=== PATIENT | female | born 1995 | race Caucasian/White ===

== ENCOUNTER 2025-11-02 07:39 | Inpatient (IN) ==
[2025-11-02] MEDS ORDERED: CALCIUM CARBONATE 500 MG CHEWABLE TAB PO PRN (08:01)
[2025-11-02] MEDS ORDERED: OXYTOCIN 30 UNITS/NSS 30 UNITS/500 ML BAG IV PRN (08:01)
[2025-11-02] MEDS ORDERED: ACETAMINOPHEN 325 MG TAB PO PRN (08:01)
[2025-11-02] MEDS ORDERED: LIDOCAINE 1% LOCAL 20 ML VIAL INFIL PRN (08:01)
--- NOTE | 2025-11-02 08:04 | History & Physical Report ---
Date of Service November 02, 2025 Assessment & Plan (1) Obesity affecting , antepartum: (2) Gestational diabetes: (3) Encounter for induction of labor: Plan Plan pitocin iol, arom when appropriate, epidural on demand, anticipate . bs q 2 hrs. Admission and Anticipated Discharge Date Admission Date: November 02, 2025 History of Present Illness Chief Complaint: iol Primary Care Provider: Zac Del Valle PA-C Patient is a 30yowf who presents for iol for obesity and gdm. She notes good fm, occasional contraction, no lof/vb. and Delivery Plans Obesity (BMI 40 and higher @ beginning of ) *Growth US @ 32wks *Weekly NSTs @ 34wks *BMI 40 or greater offer detailed/level II [place] [facility] [place] *BMI 40 or above offer delivery by [facility]. 11/02/25 Hepatitis B Non Immune *Recommend Hepatitis B Vaccine Neg pap/HPV+ @ NOB visit *Repeat pap 1 year Trichomonas infection on pap @ NOB visit *MAX 3-4 wks after treatment----negative GDM w/16wk glucola *Begin monthly Growth US's @24wks OB Labs: Blood Type O Positive 04/16/25 Antibody Screen NEGATIVE 04/16/25 Hgb 11.5 g/dl (12.0-16.0) L 08/13/25 Hct 33.6 % (37.0-47.0) L 08/13/25 MCV 83.8 fL (80.0-100.0) 04/16/25 Plt Count 292 K/uL (130-400) 04/16/25 Rubella IgG Antibody Non Immune (Immune) L 04/16/25 Treponema pallidum Ab Negative (Negative) 08/13/25 Hep Bs Antigen Negative (Negative) 04/16/25 Hepatitis C Antibody Negative (Negative) 04/16/25 HIV 1&2 Ab/P24 Ag 4thGn Negative (Negative) 04/16/25 Glucose 1 Hr 50 gm 138 mg/dl (70-130) H 05/31/25 Maternal Serum AFP 38.7 ng/mL 05/31/25 OB Optional Labs: Chlamydia trachomatis RNA Not Detected (NotDetected) 05/26/25 Neisseria gonorrhoeae RNA Not Detected (NotDetected) 05/26/25 Alpha Fetoprotein Triple Screen SEE NOTE 05/31/25 Labs Reviewed: gbs neg afp neg low risk panorama shorizon 14 neg. gbs neg Allergies Allergy/AdvReac Type Severity Reaction Status Date / Time z iza Allergy Vomiting Uncoded 11/01/25 10:16 Home Medications Medication Instructions Recorded Confirmed Type prenat.vits,ozzie,aww-cvyd-jzjjd tab PO 04/14/25 11/01/25 History acetone (urine) test (Ketone Urine #50 ea 06/25/25 11/01/25 Rx Test strips) blood sugar diagnostic (OneTouch #150 ea 06/25/25 11/01/25 Rx Verio test strips) blood-glucose meter (OneTouch #1 ea 06/25/25 11/01/25 Rx Verio Flex Meter) lancets 33 gauge (OneTouch Delica #150 ea 06/25/25 11/01/25 Rx Plus Lancet) calcium carbonate [Tums] PO 09/09/25 11/01/25 History famotidine [Pepcid] PO 09/09/25 11/01/25 History Patient History Family History (Updated 04/14/25 @ 14:33 by Anabella Vazquez) Father Heart disease Mother Raynauds disease Social History (Updated 04/14/25 @ 14:42 by Anabella Vazquez) Smoking Status: Never smoker Do You Dip or Chew Tobacco: No; marital status: Single marital status details: James (31) [phone] Current Living Situation: Significant Other Current Living Situation Comment: lives with fob, 1 cat, fob to change litter current occupational status: employed current occupation: [employer] History g1--present [employer] History noncontributory Physical Exam Constitutional: WD/WN, vitals as above Gastrointestinal (Abdomen): soft, gravid, nt Psychiatric: A+Ox3, euthymic affect Genitourinary: cx-- toco--rare efm--135 with mod variability, accels to 150s, no decels Coding Level of Care Code None Diagnoses Obesity affecting , antepartum O99.210 Gestational diabetes O24.419 Encounter for induction of labor Z34.90
[2025-11-02] MEDS: LACTATED RINGER'S 1,000 ML IV PRN (08:36)
[2025-11-02 08:41] LABS: Hematocrit (blood only) 33.3 % (37.0-47.0); Hemoglobin 11.1 g/dL (12.0-16.0); Mean Corpuscular Hemoglobin 27.4 pg (25.0-34.0); Mean Corpuscular Volume 82.2 fL (80.0-100.0); Platelet Count 310 K/uL (130-400); RDW Standard Deviation 39.9 fL (36.4-46.3); Red Blood Count 4.05 M/uL (4.20-5.40); White Blood Count 10.36 K/ul (4.8-10.8)
[2025-11-02] MEDS: OXYTOCIN 30 UNITS/NSS 30 UNITS/500 ML BAG IV PRN (08:55)
--- NOTE | 2025-11-02 15:55 | Labor Progress Brief Note ---
Date of Service November 02, 2025 Subjective noting contractions, tolerating Assessment & Plan (1) Encounter for induction of labor: Plan continue current management, epidural if desires, fetus category one, anticipate . Admission and Anticipated Discharge Date Admission Date: November 02, 2025 Physical Exam Physical Exam: gentle tug and penaloza out cx--75/-2 arom--thin mec toco--q2-4min, pit at 8 efm--145 with mod variability, accels to 170s, no decels Results & Data Vital Signs (Past 12 Hours) Vital Signs Temp Pulse Resp BP 11/02/25 12:33 76 132/66 11/02/25 12:30 18 11/02/25 12:30 36.4 C L 18 11/02/25 10:28 72 121/82 11/02/25 09:00 36.7 C 18 11/02/25 08:04 90 135/87 11/02/25 08:00 18 11/02/25 08:00 36.7 C 18 Coding Level of Care Code None Diagnoses Encounter for induction of labor Z34.90
[2025-11-02] MEDS ORDERED: NALOXONE HCL 1 MG in SODIUM CHLORIDE 0.9% 1,000 ML IV PRN (22:33)
[2025-11-02] MEDS ORDERED: LIDOCAINE 2% MPF LOCAL 5 ML VIAL EPI PRN (22:33)
[2025-11-02] MEDS ORDERED: PROMETHAZINE 6.25 MG/50.25 ML BAG IV PRN (22:33)
[2025-11-02] MEDS ORDERED: ONDANSETRON INJ 2 MG/ML 2 ML VIAL IV PRN (22:33)
[2025-11-02] MEDS ORDERED: diphenhydrAMINE 50 MG/ML VIAL IV PRN (22:33)
[2025-11-02] MEDS ORDERED: NALOXONE HCL 0.4 MG/1 ML VIAL/CARP IV PRN (22:33)
[2025-11-02] MEDS ORDERED: ROPIVACAINE 0.5% PF 5 MG/ML 20 ML VIAL EPI PRN (22:33)
[2025-11-02] MEDS ORDERED: BUPIVACAINE 0.25% PF 30 ML VIAL EPI PRN (22:33)
[2025-11-02] MEDS ORDERED: NALBUPHINE HCL INJ 10 MG/ML AMP IV PRN (22:33)
[2025-11-02] MEDS ORDERED: SODIUM CHLORIDE 0.9% PF INJ 10 ML VIAL EPI PRN (22:33)
--- NOTE | 2025-11-02 22:34 | Anesthesiology Consultation ---
Date of Service November 02, 2025 Assessment & Plan Chart Review Chart Review: Patient NOT seen in Pre Admission Testing and Acceptable Risk for Labor Epidural Consults Requested none ASA ASA2 Proposed Anesthesia Anesthesia Type: Labor Epidural Risk / Benefits Reviewed With: PT / POA / Parent / Guardian, Accepts Plan and Informed Consent Obtained History Height/Weight Height: 5 ft 3 in Weight: 123.377 kg Allergies Allergy/AdvReac Type Severity Reaction Status Date / Time azithromycin [From Zithromax] Allergy Vomiting Verified 11/02/25 08:08 Medications Home Medications Medication Instructions Recorded Confirmed Last Taken prenat.vits,ozzie,znu-lsqu-froce tab PO 04/14/25 11/01/25 Unknown acetone (urine) test (Ketone Urine #50 ea 06/25/25 11/01/25 Unknown Test strips) blood sugar diagnostic (OneTouch #150 ea 06/25/25 11/01/25 Unknown Verio test strips) blood-glucose meter (OneTouch #1 ea 06/25/25 11/01/25 Unknown Verio Flex Meter) lancets 33 gauge (OneTouch Delica #150 ea 06/25/25 11/01/25 Unknown Plus Lancet) calcium carbonate [Tums] PO 09/09/25 11/01/25 Unknown famotidine [Pepcid] PO 09/09/25 11/01/25 Unknown Active Medications Generic Name Dose Route Start Last Admin Trade Name Freq PRN Reason Stop Dose Admin Oxytocin 30 units in 500 mls @ 17 mls/hr 11/02/25 08:01 11/02/25 20:35 Pitocin 30 Units/Nss IV 11/04/25 08:00 1.02 units/hr .Q24H PRN 17 mls/hr Labor Induction/Augmentation Titration Protocol 1.02 UNITS/HR Lactated Ringer's 1,000 mls @ 125 mls/hr 11/02/25 08:01 11/02/25 22:17 Lr IV 11/04/25 08:00 999 mls/hr .Q8H PRN Administration L&D Protocol Protocol Exercise / Class Metabolic Activity II 4-5 Yardwork/Stairs/Walk up hill Past Family History Family History Father Heart disease Mother Raynauds disease Past Anesthesia History No Hx of Anesthesia Complications and No Family Hx of Anesthesia Complications History of PONV No Hx of PONV and No Hx of Motion Sickness Social History Smoking Status: Never smoker Do You Dip or Chew Tobacco: No Hx Alcohol Use: No Hx Substance Use: No substance use type: does not use Physical Exam Vital Signs Last Vital Signs Temp 36.9 C 11/02/25 21:05 Pulse 86 11/02/25 22:29 Resp 16 11/02/25 21:05 BP 124/68 11/02/25 21:05 Pulse Ox 96 11/02/25 22:29 ENMT Mouth: no dentition abnormality Thyromental Distance: > or= 3.5 Finger Breadths Mallampati Class: II Neck normal visual inspection Respiratory normal respiratory effort Auscultation: lungs clear to auscultation bilaterally Cardiovascular Rate/Rhythm: regular rate and regular rhythm Psychiatric Orientation: alert Testing Laboratory Results 11/02/25 08:11 11/02/25 11/02/25 11/02/25 20:13 18:30 16:43 POC Glucose 103 H 94 100 H 11/02/25 11/02/25 11/02/25 14:35 12:35 10:31 POC Glucose 85 81 105 H
[2025-11-02] MEDS: fentANYL 2 MCG/ML BUPIVacaine 0.125%-NSS 100ML BAG ONE (22:52)
[2025-11-02] MEDS: BUPIVACAINE 0.25% PF 30 ML VIAL ONE (23:01)
[2025-11-02] MEDS: SODIUM CHLORIDE 0.9% PF INJ 10 ML VIAL ONE (23:01)
[2025-11-02] MEDS: LIDOCAINE 2%/EPINEPHRINE 1:200,000 20 ML PF ONE (23:01)
--- NOTE | 2025-11-03 00:12 | Labor Progress Brief Note ---
Date of Service November 03, 2025 Subjective comfortable with epidural Assessment & Plan (1) Encounter for induction of labor: Plan continue pit to get adequate contractions. fetus overall category one. Admission and Anticipated Discharge Date Admission Date: November 02, 2025 Physical Exam Physical Exam: cx--4/75/-2 toco--q2-4. pit at 19 efm--140s wtih mod variability, accels to 160s, one decel noted that resolved with position change iupc placed Results & Data Vital Signs (Past 12 Hours) Vital Signs Temp Pulse Resp BP Pulse Ox 11/03/25 00:09 84 169/84 H 98 11/03/25 00:04 88 98 11/03/25 00:00 18 11/03/25 00:00 18 11/02/25 23:59 90 98 11/02/25 23:56 81 142/83 H 11/02/25 23:55 93 H 162/91 H 11/02/25 23:54 86 97 11/02/25 23:49 96 H 97 11/02/25 23:47 86 94 11/02/25 23:44 75 96 11/02/25 23:41 75 94 11/02/25 23:39 86 94 11/02/25 23:35 86 94 11/02/25 23:34 78 96 11/02/25 23:33 78 128/58 L 11/02/25 23:30 18 11/02/25 23:30 18 11/02/25 23:29 79 95 11/02/25 23:28 90 122/59 L 11/02/25 23:24 97 H 95 11/02/25 23:23 94 H 132/62 11/02/25 23:19 79 96 11/02/25 23:18 98 H 141/64 H 11/02/25 23:14 93 H 96 11/02/25 23:12 95 H 136/60 11/02/25 23:09 94 H 145/75 H 97 11/02/25 23:08 95 H 88/54 L 11/02/25 23:06 91 H 109/54 L 11/02/25 23:04 95 H 106/55 L 97 11/02/25 23:02 91 H 105/53 L 11/02/25 23:00 36.6 C 101 H 16 110/53 L 11/02/25 22:59 107 H 96 11/02/25 22:58 91 H 112/52 L 11/02/25 22:57 100 H 107/55 L 11/02/25 22:54 94 H 97 11/02/25 22:52 93 H 115/56 L 11/02/25 22:49 102 H 98 11/02/25 22:44 111 H 98 11/02/25 22:39 104 H 98 11/02/25 22:34 84 97 11/02/25 22:29 86 96 11/02/25 22:26 86 93 11/02/25 22:24 96 H 98 11/02/25 22:19 95 H 98 11/02/25 22:14 76 98 11/02/25 22:09 93 H 97 11/02/25 22:04 90 97 11/02/25 21:05 36.9 C 70 16 124/68 11/02/25 19:08 36.9 C 79 18 122/71 11/02/25 17:00 18 11/02/25 17:00 36.7 C 18 11/02/25 16:30 18 11/02/25 16:30 18 11/02/25 15:53 88 140/78 11/02/25 15:50 18 11/02/25 15:50 36.7 C 18 11/02/25 12:33 76 132/66 11/02/25 12:30 18 11/02/25 12:30 36.4 C L 18 Coding Level of Care Code None Diagnoses Encounter for induction of labor Z34.90
[2025-11-03] MEDS: BUPIVACAINE 0.25% PF 30 ML VIAL EPI STA (00:28)
[2025-11-03] MEDS: LIDOCAINE 2%/EPINEPHRINE 1:200,000 20 ML PF EPI STA (00:28)
[2025-11-03] MEDS: SODIUM CHLORIDE 0.9% PF INJ 10 ML VIAL EPI STA (00:28)
--- NOTE | 2025-11-03 06:18 | Labor Progress Brief Note ---
Date of Service November 03, 2025 Subjective comfortable Assessment & Plan (1) Gestational diabetes: (2) Obesity affecting , antepartum: Plan Small change, only adequate for 3 hours. Fetus overall category one with the occasional decel noted. Continue current management. Admission and Anticipated Discharge Date Admission Date: November 02, 2025 Physical Exam Physical Exam: cx--5/100/-2 toco--q2-4min, pit at 27, adequate since about 3am efm--130s with mod variability, small accels, occasional early type of decel out of the blue with spon resolution Results & Data Vital Signs (Past 12 Hours) Vital Signs Temp Pulse Resp BP Pulse Ox 11/03/25 06:10 74 179/99 H 11/03/25 06:09 98 11/03/25 06:09 72 11/03/25 06:09 79 152/101 H 11/03/25 06:04 88 98 11/03/25 05:59 75 97 11/03/25 05:54 90 97 11/03/25 05:53 90 134/92 11/03/25 05:49 74 96 11/03/25 05:44 70 95 11/03/25 05:39 95 11/03/25 05:39 65 11/03/25 05:39 62 133/82 11/03/25 05:34 71 98 11/03/25 05:30 18 11/03/25 05:30 18 11/03/25 05:29 68 96 11/03/25 05:24 97 11/03/25 05:24 69 11/03/25 05:24 70 142/84 H 11/03/25 05:19 68 96 11/03/25 05:14 67 97 11/03/25 05:10 68 140/83 11/03/25 05:09 68 96 11/03/25 05:04 68 98 11/03/25 05:00 18 11/03/25 05:00 36.7 C 18 11/03/25 04:59 67 97 11/03/25 04:54 66 129/81 96 11/03/25 04:49 68 96 11/03/25 04:44 67 96 11/03/25 04:39 68 95 11/03/25 04:38 73 125/75 11/03/25 04:34 68 96 11/03/25 04:30 18 11/03/25 04:30 18 11/03/25 04:29 72 96 11/03/25 04:24 97 11/03/25 04:24 88 11/03/25 04:24 98 H 137/95 11/03/25 04:19 72 95 11/03/25 04:14 81 96 11/03/25 04:11 72 94 11/03/25 04:09 78 95 11/03/25 04:08 78 136/82 11/03/25 04:04 70 94 11/03/25 04:03 70 94 11/03/25 04:00 16 11/03/25 04:00 16 11/03/25 03:59 68 95 11/03/25 03:57 69 94 11/03/25 03:54 71 95 11/03/25 03:53 75 124/72 11/03/25 03:49 68 95 11/03/25 03:48 65 94 11/03/25 03:44 69 95 11/03/25 03:39 95 11/03/25 03:39 66 11/03/25 03:39 68 126/77 11/03/25 03:34 68 96 11/03/25 03:33 71 94 11/03/25 03:30 18 11/03/25 03:30 18 11/03/25 03:29 71 95 11/03/25 03:25 68 94 11/03/25 03:24 70 93 11/03/25 03:23 76 146/75 H 11/03/25 03:19 78 94 11/03/25 03:14 66 95 11/03/25 03:09 71 96 11/03/25 03:08 71 146/75 H 11/03/25 03:04 74 96 11/03/25 03:00 36.6 C 11/03/25 02:59 66 96 11/03/25 02:55 68 135/77 11/03/25 02:54 69 96 11/03/25 02:49 73 96 11/03/25 02:44 78 96 11/03/25 02:39 73 114/59 L 94 11/03/25 02:34 77 95 11/03/25 02:30 16 11/03/25 02:30 16 11/03/25 02:29 80 95 11/03/25 02:25 82 94 12/24/25 02:24 94 11/03/25 02:24 79 11/03/25 02:24 69 114/57 L 11/03/25 02:19 72 94 11/03/25 02:14 75 95 11/03/25 02:09 78 96 11/03/25 02:08 77 111/65 11/03/25 02:04 75 95 11/03/25 02:00 18 11/03/25 02:00 18 11/03/25 01:59 73 95 11/03/25 01:54 96 11/03/25 01:54 80 11/03/25 01:54 71 125/73 11/03/25 01:49 78 96 11/03/25 01:44 98 H 96 11/03/25 01:39 78 96 11/03/25 01:38 78 147/89 H 11/03/25 01:34 79 95 11/03/25 01:30 18 11/03/25 01:30 18 11/03/25 01:29 81 94 11/03/25 01:26 72 94 11/03/25 01:25 72 140/80 11/03/25 01:24 71 95 11/03/25 01:21 79 94 11/03/25 01:19 78 95 11/03/25 01:16 79 94 11/03/25 01:14 80 94 11/03/25 01:10 86 94 11/03/25 01:09 84 95 11/03/25 01:08 70 147/86 H 11/03/25 01:04 95 11/03/25 01:04 71 11/03/25 01:04 74 94 11/03/25 01:00 18 11/03/25 01:00 36.7 C 18 11/03/25 00:59 85 97 11/03/25 00:54 96 11/03/25 00:54 74 11/03/25 00:54 69 142/85 H 11/03/25 00:49 69 96 11/03/25 00:44 73 96 11/03/25 00:39 81 97 11/03/25 00:38 70 142/83 H 11/03/25 00:34 73 97 11/03/25 00:30 18 11/03/25 00:30 18 11/03/25 00:29 76 96 12/24/25 00:24 83 97 11/03/25 00:23 85 132/73 11/03/25 00:20 86 146/84 H 11/03/25 00:19 86 97 11/03/25 00:14 104 H 99 11/03/25 00:09 84 169/84 H 98 11/03/25 00:04 88 98 11/03/25 00:00 18 11/03/25 00:00 18 11/02/25 23:59 90 98 11/02/25 23:56 81 142/83 H 11/02/25 23:55 93 H 162/91 H 11/02/25 23:54 86 97 11/02/25 23:49 96 H 97 11/02/25 23:47 86 94 11/02/25 23:44 75 96 11/02/25 23:41 75 94 11/02/25 23:39 86 94 11/02/25 23:35 86 94 11/02/25 23:34 78 96 11/02/25 23:33 78 128/58 L 11/02/25 23:30 18 11/02/25 23:30 18 11/02/25 23:29 79 95 11/02/25 23:28 90 122/59 L 11/02/25 23:24 97 H 95 11/02/25 23:23 94 H 132/62 11/02/25 23:19 79 96 11/02/25 23:18 98 H 141/64 H 11/02/25 23:14 93 H 96 11/02/25 23:12 95 H 136/60 11/02/25 23:09 94 H 145/75 H 97 11/02/25 23:08 95 H 88/54 L 11/02/25 23:06 91 H 109/54 L 11/02/25 23:04 95 H 106/55 L 97 11/02/25 23:02 91 H 105/53 L 11/02/25 23:00 36.6 C 101 H 16 110/53 L 11/02/25 22:59 107 H 96 11/02/25 22:58 91 H 112/52 L 11/02/25 22:57 100 H 107/55 L 11/02/25 22:54 94 H 97 11/02/25 22:52 93 H 115/56 L 11/02/25 22:49 102 H 98 11/02/25 22:44 111 H 98 11/02/25 22:39 104 H 98 11/02/25 22:34 84 97 11/02/25 22:29 86 96 11/02/25 22:26 86 93 11/02/25 22:24 96 H 98 11/02/25 22:19 95 H 98 11/02/25 22:14 76 98 11/02/25 22:09 93 H 97 11/02/25 22:04 90 97 11/02/25 21:05 36.9 C 70 16 124/68 11/02/25 19:08 36.9 C 79 18 122/71 Coding Level of Care Code None Diagnoses Gestational diabetes O24.419 Obesity affecting , antepartum O99.210
[2025-11-03] MEDS: fentANYL 2 MCG/ML BUPIVacaine 0.125%-NSS 100ML BAG EPI PRN (07:18)
--- NOTE | 2025-11-03 08:45 | Labor Progress Brief Note ---
Date of Service November 03, 2025 Signed over from call from Dr. Dupree at 8:30 in the morning patient has been induced with cervical Lucero Pitocin and artificial rupture membranes at 4 PM yesterday progress has been slow at that time she 4 PM she was 4 cm she is currently 5 cm 100% on my check this has been slow progress she is on 30 milliunits of Pitocin her contraction pattern is somewhat dysfunctional but I hesitate to increase the Pitocin as her contractions are fairly close together and bunches her heart rate is category 1 at this time I expressed my concern as to been slow progress and may be signs of cephalopelvic disc proportion I did offer discussed the risks I also offered to continue Pitocin she is considering her options in depth we discussed increased risk of prolonged rupture of membranes section. The patient was counseled to the nature of the procedure including alternatives such as labor. Risks were discussed including bleeding infection injury to bowel bladder ureter vessels and even baby. Deep Vein thrombosis, pulmonary embolus discussed. Breakdown of incision reviewed. Deep vein thrombosis pulmonary embolus hernia and failure of the incision to heal were discussed Patient verbalized understanding of this and was given ample time to ask questions Assessment & Plan Admission and Anticipated Discharge Date Admission Date: November 02, 2025 Results & Data Vital Signs (Past 12 Hours) Vital Signs Temp Pulse Resp BP Pulse Ox 11/03/25 08:39 79 99 11/03/25 08:34 69 96 11/03/25 08:29 71 97 11/03/25 08:25 77 135/87 11/03/25 08:24 82 98 11/03/25 08:19 74 98 11/03/25 08:14 80 95 11/03/25 08:09 69 96 11/03/25 08:08 70 123/69 11/03/25 08:04 74 96 11/03/25 08:00 18 11/03/25 08:00 18 11/03/25 07:59 73 96 11/03/25 07:54 97 11/03/25 07:54 67 11/03/25 07:54 73 121/67 11/03/25 07:49 68 97 11/03/25 07:44 69 96 11/03/25 07:39 67 96 11/03/25 07:38 65 125/73 11/03/25 07:34 65 97 11/03/25 07:30 18 11/03/25 07:30 18 11/03/25 07:29 76 97 11/03/25 07:24 71 96 11/03/25 07:23 70 123/73 11/03/25 07:19 74 96 11/03/25 07:14 70 96 11/03/25 07:09 91 H 98 11/03/25 07:05 18 11/03/25 07:05 98.2 F 18 11/03/25 07:04 85 96 11/03/25 07:00 16 11/03/25 07:00 16 11/03/25 06:59 74 96 11/03/25 06:55 75 120/70 11/03/25 06:54 76 97 11/03/25 06:49 77 98 11/03/25 06:44 97 H 97 11/03/25 06:39 74 96 11/03/25 06:38 75 116/71 11/03/25 06:34 75 96 11/03/25 06:30 18 11/03/25 06:30 18 11/03/25 06:29 77 97 11/03/25 06:24 81 121/62 98 11/03/25 06:19 77 97 11/03/25 06:15 80 127/60 11/03/25 06:14 78 97 11/03/25 06:10 74 179/99 H 11/03/25 06:09 98 11/03/25 06:09 72 11/03/25 06:09 79 152/101 H 11/03/25 06:04 88 98 11/03/25 06:00 18 11/03/25 06:00 18 11/03/25 05:59 75 97 11/03/25 05:54 90 97 11/03/25 05:53 90 134/92 11/03/25 05:49 74 96 11/03/25 05:44 70 95 11/03/25 05:39 95 11/03/25 05:39 65 11/03/25 05:39 62 133/82 11/03/25 05:34 71 98 11/03/25 05:30 18 11/03/25 05:30 18 11/03/25 05:29 68 96 11/03/25 05:24 97 11/03/25 05:24 69 11/03/25 05:24 70 142/84 H 11/03/25 05:19 68 96 11/03/25 05:14 67 97 11/03/25 05:10 68 140/83 11/03/25 05:09 68 96 11/03/25 05:04 68 98 11/03/25 05:00 18 11/03/25 05:00 98.1 F 18 11/03/25 04:59 67 97 11/03/25 04:54 66 129/81 96 11/03/25 04:49 68 96 11/03/25 04:44 67 96 11/03/25 04:39 68 95 11/03/25 04:38 73 125/75 11/03/25 04:34 68 96 11/03/25 04:30 18 11/03/25 04:30 18 11/03/25 04:29 72 96 11/03/25 04:24 97 11/03/25 04:24 88 11/03/25 04:24 98 H 137/95 11/03/25 04:19 72 95 11/03/25 04:14 81 96 11/03/25 04:11 72 94 11/03/25 04:09 78 95 11/03/25 04:08 78 136/82 11/03/25 04:04 70 94 11/03/25 04:03 70 94 11/03/25 04:00 16 11/03/25 04:00 16 11/03/25 03:59 68 95 11/03/25 03:57 69 94 11/03/25 03:54 71 95 11/03/25 03:53 75 124/72 11/03/25 03:49 68 95 11/03/25 03:48 65 94 11/03/25 03:44 69 95 11/03/25 03:39 95 11/03/25 03:39 66 11/03/25 03:39 68 126/77 11/03/25 03:34 68 96 11/03/25 03:33 71 94 11/03/25 03:30 18 11/03/25 03:30 18 11/03/25 03:29 71 95 11/03/25 03:25 68 94 11/03/25 03:24 70 93 11/03/25 03:23 76 146/75 H 11/03/25 03:19 78 94 11/03/25 03:14 66 95 11/03/25 03:09 71 96 11/03/25 03:08 71 146/75 H 11/03/25 03:04 74 96 11/03/25 03:00 97.9 F 11/03/25 02:59 66 96 11/03/25 02:55 68 135/77 11/03/25 02:54 69 96 11/03/25 02:49 73 96 11/03/25 02:44 78 96 11/03/25 02:39 73 114/59 L 94 11/03/25 02:34 77 95 11/03/25 02:30 16 11/03/25 02:30 16 11/03/25 02:29 80 95 11/03/25 02:25 82 94 11/03/25 02:24 94 11/03/25 02:24 79 11/03/25 02:24 69 114/57 L 11/03/25 02:19 72 94 11/03/25 02:14 75 95 11/03/25 02:09 78 96 11/03/25 02:08 77 111/65 11/03/25 02:04 75 95 11/03/25 02:00 18 11/03/25 02:00 18 11/03/25 01:59 73 95 11/03/25 01:54 96 11/03/25 01:54 80 11/03/25 01:54 71 125/73 11/03/25 01:49 78 96 11/03/25 01:44 98 H 96 11/03/25 01:39 78 96 11/03/25 01:38 78 147/89 H 11/03/25 01:34 79 95 11/03/25 01:30 18 11/03/25 01:30 18 11/03/25 01:29 81 94 11/03/25 01:26 72 94 11/03/25 01:25 72 140/80 11/03/25 01:24 71 95 11/03/25 01:21 79 94 11/03/25 01:19 78 95 11/03/25 01:16 79 94 11/03/25 01:14 80 94 11/03/25 01:10 86 94 11/03/25 01:09 84 95 11/03/25 01:08 70 147/86 H 11/03/25 01:04 95 11/03/25 01:04 71 11/03/25 01:04 74 94 11/03/25 01:00 18 11/03/25 01:00 98.1 F 18 11/03/25 00:59 85 97 11/03/25 00:54 96 11/03/25 00:54 74 11/03/25 00:54 69 142/85 H 11/03/25 00:49 69 96 11/03/25 00:44 73 96 11/03/25 00:39 81 97 11/03/25 00:38 70 142/83 H 11/03/25 00:34 73 97 11/03/25 00:30 18 11/03/25 00:30 18 11/03/25 00:29 76 96 11/03/25 00:24 83 97 11/03/25 00:23 85 132/73 11/03/25 00:20 86 146/84 H 11/03/25 00:19 86 97 11/03/25 00:14 104 H 99 11/03/25 00:09 84 169/84 H 98 11/03/25 00:04 88 98 11/03/25 00:00 18 11/03/25 00:00 18 11/02/25 23:59 90 98 11/02/25 23:56 81 142/83 H 11/02/25 23:55 93 H 162/91 H 11/02/25 23:54 86 97 11/02/25 23:49 96 H 97 11/02/25 23:47 86 94 11/02/25 23:44 75 96 11/02/25 23:41 75 94 11/02/25 23:39 86 94 11/02/25 23:35 86 94 11/02/25 23:34 78 96 11/02/25 23:33 78 128/58 L 11/02/25 23:30 18 11/02/25 23:30 18 11/02/25 23:29 79 95 11/02/25 23:28 90 122/59 L 11/02/25 23:24 97 H 95 11/02/25 23:23 94 H 132/62 11/02/25 23:19 79 96 11/02/25 23:18 98 H 141/64 H 11/02/25 23:14 93 H 96 11/02/25 23:12 95 H 136/60 11/02/25 23:09 94 H 145/75 H 97 11/02/25 23:08 95 H 88/54 L 11/02/25 23:06 91 H 109/54 L 11/02/25 23:04 95 H 106/55 L 97 11/02/25 23:02 91 H 105/53 L 11/02/25 23:00 97.9 F 101 H 16 110/53 L 11/02/25 22:59 107 H 96 11/02/25 22:58 91 H 112/52 L 11/02/25 22:57 100 H 107/55 L 11/02/25 22:54 94 H 97 11/02/25 22:52 93 H 115/56 L 11/02/25 22:49 102 H 98 11/02/25 22:44 111 H 98 11/02/25 22:39 104 H 98 11/02/25 22:34 84 97 11/02/25 22:29 86 96 11/02/25 22:26 86 93 11/02/25 22:24 96 H 98 11/02/25 22:19 95 H 98 11/02/25 22:14 76 98 11/02/25 22:09 93 H 97 11/02/25 22:04 90 97 11/02/25 21:05 98.4 F 70 16 124/68 Coding Level of Care Code None
[2025-11-03] MEDS ORDERED: OXYTOCIN 10 UNITS/ML VIAL ONE (09:15)
[2025-11-03] MEDS ORDERED: LACTATED RINGER'S 1,000 ML IV SCH (09:15)
[2025-11-03] MEDS ORDERED: DEXAMETHASONE SOD INJ 4 MG/ML VIAL ONE (09:15)
[2025-11-03] MEDS ORDERED: AZITHROMYCIN 500 MG/255 ML BAG IV ONE (09:15)
[2025-11-03] MEDS ORDERED: LIDOCAINE 2%/EPINEPHRINE 1:200,000 20 ML PF ONE (09:16)
[2025-11-03] MEDS ORDERED: ONDANSETRON INJ 2 MG/ML 2 ML VIAL ONE (09:16)
[2025-11-03] MEDS ORDERED: PHENYLEPHRINE HCL 25 MG/250 ML NSS IV ONE (09:16)
[2025-11-03] MEDS: ceFAZolin 3000MG 3,000 MG/72.5 ML BAG IV ONE (09:22)
[2025-11-03] MEDS: CITRIC ACID/SODIUM CITRATE 15 ML UDC PO SCH (09:25)
--- NOTE | 2025-11-03 10:34 | Operative Report ---
Post Operative Report Pre & Post Diagnosis Operation Date: 11/03/25 09:30 Pre-Op Diagnosis: Failure to progress Post-Op Diagnosis: Failure to progress I identified the patient and participated in the time-out.: Yes Procedure Operation Date: 11/03/25 09:30 Actual Procedures p Section in LD - Live female infant born at - Oneyda Umanzor MD, FACOG Surgeon Oneyda Umanzor MD, FACOG Mammal Control Agent Bhavani OAKLEY Quantitative Blood Loss (QBL) 592 Findings Consistent with Post-Op Diagnosis Specimens cord blood, gases Description of Procedure Regional anesthetic had been given by anesthesia patient was prepped and draped with a leftward tilt preoperative antibiotics had been given in appropriate timing by anesthesiology. Once the prep was allowed to fully dry timeout was performed. Pickups with teeth were used to test the incision area was found to be adequate for incision as the patient did not feel sharp pain. Scalpel was used to make a Pfannenstiel incision on the lower abdomen. We then cut through the subcutaneous fat down to the level of the anterior rectus sheath fascia this was cut in the midline and then extended laterally with the curved Oconnell scissors. At this stage we then placed 2 Izzy clamps on the anterior aspect of the fascia. Using the curved Oconnell's we are able to dissect the fascia superiorly away from the rectus muscles. Care was taken to maintain hemostasis. Izzy clamps were then placed to the inferior aspect of the anterior sheath of the fascia. Fascia was then dissected away from the rectus muscles inferiorly towards the pubic bone. A Izzy was then placed in the midline both inferiorly and superiorly. This was to allow exposure by retraction rectus muscles were in the midline with were then able to cut through the peritoneum and then enter the peritoneal cavity. Opening was enlarged to allow exposure of the peritoneal cavity both superiorly and inferiorly. Once adequate space was obtained a bladder retractor was placed to expose the lower segment Metzenbaums were used to dissect the bladder flap inferiorly away from the uterus. This was done sharply bladder retractor was then repositioned to expose the lower segment of the uterus Fresh scalpel was used to make a low transverse incision on the uterus. Uterus was then entered bluntly with the operators finger, membranes ruptured and the opening was enlarged using the operators fingers bluntly pulling superiorly and inferiorly to allow exposure. Baby was delivered by first flexion of the head elevation of the head out of the pelvis and then pressure by the recruiting assistant on the maternal abdomen. Baby's head was then delivered mouth and then nares were suctioned and then using gentle traction the baby was fully delivered. Live vigorous infant. Fluid was clear cord clamped and cut cord gases obtained cord blood obtained baby handed to pediatrics. Placenta removed was removed with traction we ensure the entire placenta was removed with a moist lap sponge into the uterus. Note the baby was in occiput posterior position and was a loose nuchal cord passed over the head there was thin meconium Uterus was then exteriorized. IV Pitocin had been started by anesthesia tone improved there were no extensions the uterus was then closed using 0 Monocryl in a 2 layer closure the first layer closed in a running locked fashion from left to right and then a second closure from left to right in a running nonlocked fashion. At this stage hemostasis was excellent. Uterus was placed back in the peritoneal cavity with suction irrigation out and inspection of the uterus at this stage revealed excellent hemostasis Retractors were removed urine color was clear at this stage of the case we inspected the rectus muscles they were hemostatic fascia was closed with 0 Vicryl subcutaneous fat was irrigated and closed with 3-0 Vicryl skin closed with 4-0 subcuticular Monocryl Uterus and adnexa were normal anatomically and additionally a dar dressing was applied I attest to the content of the Intraoperative Record and any orders documented therein. Any exceptions are noted below. OB Procedure Charges 21178
[2025-11-03 10:40] LABS: Base Excess Cord Arterial Bld -2.4 mEq/L (-9-1.8); CO2 Cord Arterial Blood 59 mmHg (39.1-73.5); HCO3 Cord Arterial Blood 26 mmol/L (19.7-28.5); Oxygen Sat Cord Arterial Blood < 60.0 % (<60); PO2 Cord Arterial Blood < 20 mmHg (4.1-31.7); pH Cord Arterial Blood 7.25 (7.1-7.38)
[2025-11-03] MEDS ORDERED: BENZOCAINE 20% SPRY 85 APPLN/85 GM CAN EXT PRN (10:53)
[2025-11-03] MEDS ORDERED: MAGNESIUM HYDROXIDE SUSP 30 ML UDC PO PRN (10:53)
[2025-11-03] MEDS ORDERED: ONDANSETRON INJ 2 MG/ML 2 ML VIAL IV PRN (10:53)
[2025-11-03] MEDS ORDERED: SENNA 8.6 MG TAB PO PRN (10:53)
[2025-11-03] MEDS ORDERED: HYDROCORTISONE ACETATE 25 MG SUPP PR PRN (10:53)
[2025-11-03] MEDS ORDERED: diphenhydrAMINE Capsule 25 MG CAP PO PRN (10:53)
--- NOTE | 2025-11-03 11:13 | Anesthesia Procedure Note ---
Date of Service November 03, 2025 Anesthesia Post Epidural Note Vital Signs Vital Signs: Temp Pulse Resp BP Pulse Ox 36.7 C 78 18 101/51 L 96 11/03/25 09:25 11/03/25 11:09 11/03/25 08:00 11/03/25 11:04 11/03/25 11:09 Pain Intensity Lower Abdomen: Pain Intensity: 3 Notes Mental Status: alert / awake / arousable and participated in evaluation Nausea / Vomiting: adequately controlled Pain: adequately controlled Airway Patency, RR, SpO2: stable & adequate BP & HR: stable & adequate Hydration State: stable & adequate Neuraxial Anesthesia: was administered and sensory block resolved Anesthetic Complications: no major complications apparent and Pt Satisfied with anesthetic care Epidural: Removed without complications and With tip intact
--- NOTE | 2025-11-03 11:13 | Anesthesiology Progress Note ---
Date of Service November 03, 2025 Anesthesia Post Procedure Vital Signs Vital Signs: Temp Pulse Resp BP Pulse Ox 11/03/25 11:09 78 96 11/03/25 11:04 83 101/51 L 97 11/03/25 10:59 78 97 11/03/25 10:54 98 11/03/25 10:54 81 11/03/25 10:54 81 102/50 L 11/03/25 10:49 86 100 11/03/25 10:44 81 99 11/03/25 10:39 70 104/51 L 99 11/03/25 09:34 89 99 11/03/25 09:29 91 H 98 11/03/25 09:25 36.7 C 11/03/25 09:24 82 136/80 98 11/03/25 09:19 78 99 11/03/25 09:14 83 99 11/03/25 09:09 86 145/83 H 97 11/03/25 09:04 76 98 11/03/25 08:59 81 98 11/03/25 08:54 73 99 11/03/25 08:53 80 138/83 11/03/25 08:49 85 98 11/03/25 08:44 83 99 11/03/25 08:39 79 99 11/03/25 08:34 69 96 11/03/25 08:29 71 97 11/03/25 08:25 77 135/87 11/03/25 08:24 82 98 11/03/25 08:19 74 98 11/03/25 08:14 80 95 11/03/25 08:09 69 96 11/03/25 08:08 70 123/69 11/03/25 08:04 74 96 11/03/25 08:00 18 11/03/25 08:00 18 11/03/25 07:59 73 96 11/03/25 07:54 97 11/03/25 07:54 67 11/03/25 07:54 73 121/67 11/03/25 07:49 68 97 11/03/25 07:44 69 96 11/03/25 07:39 67 96 11/03/25 07:38 65 125/73 11/03/25 07:34 65 97 11/03/25 07:30 18 11/03/25 07:30 18 11/03/25 07:29 76 97 11/03/25 07:24 71 96 11/03/25 07:23 70 123/73 11/03/25 07:19 74 96 11/03/25 07:14 70 96 11/03/25 07:09 91 H 98 11/03/25 07:05 18 11/03/25 07:05 36.8 C 18 11/03/25 07:04 85 96 11/03/25 07:00 16 11/03/25 07:00 16 11/03/25 06:59 74 96 11/03/25 06:55 75 120/70 11/03/25 06:54 76 97 11/03/25 06:49 77 98 11/03/25 06:44 97 H 97 11/03/25 06:39 74 96 11/03/25 06:38 75 116/71 11/03/25 06:34 75 96 11/03/25 06:30 18 11/03/25 06:30 18 11/03/25 06:29 77 97 11/03/25 06:24 81 121/62 98 11/03/25 06:19 77 97 11/03/25 06:15 80 127/60 11/03/25 06:14 78 97 11/03/25 06:10 74 179/99 H 11/03/25 06:09 98 11/03/25 06:09 72 11/03/25 06:09 79 152/101 H 11/03/25 06:04 88 98 11/03/25 06:00 18 11/03/25 06:00 18 11/03/25 05:59 75 97 11/03/25 05:54 90 97 11/03/25 05:53 90 134/92 11/03/25 05:49 74 96 11/03/25 05:44 70 95 11/03/25 05:39 95 11/03/25 05:39 65 11/03/25 05:39 62 133/82 11/03/25 05:34 71 98 11/03/25 05:30 18 11/03/25 05:30 18 11/03/25 05:29 68 96 11/03/25 05:24 97 11/03/25 05:24 69 11/03/25 05:24 70 142/84 H 11/03/25 05:19 68 96 11/03/25 05:14 67 97 11/03/25 05:10 68 140/83 11/03/25 05:09 68 96 11/03/25 05:04 68 98 11/03/25 05:00 18 11/03/25 05:00 36.7 C 18 11/03/25 04:59 67 97 11/03/25 04:54 66 129/81 96 11/03/25 04:49 68 96 11/03/25 04:44 67 96 11/03/25 04:39 68 95 11/03/25 04:38 73 125/75 11/03/25 04:34 68 96 11/03/25 04:30 18 11/03/25 04:30 18 11/03/25 04:29 72 96 11/03/25 04:24 97 11/03/25 04:24 88 11/03/25 04:24 98 H 137/95 11/03/25 04:19 72 95 11/03/25 04:14 81 96 11/03/25 04:11 72 94 11/03/25 04:09 78 95 11/03/25 04:08 78 136/82 11/03/25 04:04 70 94 11/03/25 04:03 70 94 11/03/25 04:00 16 11/03/25 04:00 16 11/03/25 03:59 68 95 11/03/25 03:57 69 94 11/03/25 03:54 71 95 11/03/25 03:53 75 124/72 11/03/25 03:49 68 95 11/03/25 03:48 65 94 11/03/25 03:44 69 95 11/03/25 03:39 95 11/03/25 03:39 66 11/03/25 03:39 68 126/77 11/03/25 03:34 68 96 11/03/25 03:33 71 94 11/03/25 03:30 18 11/03/25 03:30 18 11/03/25 03:29 71 95 11/03/25 03:25 68 94 11/03/25 03:24 70 93 11/03/25 03:23 76 146/75 H 11/03/25 03:19 78 94 11/03/25 03:14 66 95 11/03/25 03:09 71 96 11/03/25 03:08 71 146/75 H 11/03/25 03:04 74 96 11/03/25 03:00 36.6 C 11/03/25 02:59 66 96 11/03/25 02:55 68 135/77 11/03/25 02:54 69 96 11/03/25 02:49 73 96 11/03/25 02:44 78 96 11/03/25 02:39 73 114/59 L 94 11/03/25 02:34 77 95 11/03/25 02:30 16 11/03/25 02:30 16 11/03/25 02:29 80 95 11/03/25 02:25 82 94 11/03/25 02:24 94 11/03/25 02:24 79 11/03/25 02:24 69 114/57 L 11/03/25 02:19 72 94 11/03/25 02:14 75 95 11/03/25 02:09 78 96 11/03/25 02:08 77 111/65 11/03/25 02:04 75 95 11/03/25 02:00 18 11/03/25 02:00 18 11/03/25 01:59 73 95 11/03/25 01:54 96 11/03/25 01:54 80 11/03/25 01:54 71 125/73 11/03/25 01:49 78 96 11/03/25 01:44 98 H 96 11/03/25 01:39 78 96 11/03/25 01:38 78 147/89 H 11/03/25 01:34 79 95 11/03/25 01:30 18 11/03/25 01:30 18 11/03/25 01:29 81 94 11/03/25 01:26 72 94 11/03/25 01:25 72 140/80 11/03/25 01:24 71 95 11/03/25 01:21 79 94 11/03/25 01:19 78 95 11/03/25 01:16 79 94 11/03/25 01:14 80 94 11/03/25 01:10 86 94 11/03/25 01:09 84 95 11/03/25 01:08 70 147/86 H 11/03/25 01:04 95 11/03/25 01:04 71 11/03/25 01:04 74 94 11/03/25 01:00 18 11/03/25 01:00 36.7 C 18 11/03/25 00:59 85 97 11/03/25 00:54 96 11/03/25 00:54 74 11/03/25 00:54 69 142/85 H 11/03/25 00:49 69 96 11/03/25 00:44 73 96 11/03/25 00:39 81 97 11/03/25 00:38 70 142/83 H 11/03/25 00:34 73 97 11/03/25 00:30 18 11/03/25 00:30 18 11/03/25 00:29 76 96 11/03/25 00:24 83 97 11/03/25 00:23 85 132/73 11/03/25 00:20 86 146/84 H 11/03/25 00:19 86 97 11/03/25 00:14 104 H 99 11/03/25 00:09 84 169/84 H 98 11/03/25 00:04 88 98 11/03/25 00:00 18 11/03/25 00:00 18 11/02/25 23:59 90 98 11/02/25 23:56 81 142/83 H 11/02/25 23:55 93 H 162/91 H 11/02/25 23:54 86 97 11/02/25 23:49 96 H 97 11/02/25 23:47 86 94 11/02/25 23:44 75 96 11/02/25 23:41 75 94 11/02/25 23:39 86 94 11/02/25 23:35 86 94 11/02/25 23:34 78 96 11/02/25 23:33 78 128/58 L 11/02/25 23:30 18 11/02/25 23:30 18 11/02/25 23:29 79 95 11/02/25 23:28 90 122/59 L 11/02/25 23:24 97 H 95 11/02/25 23:23 94 H 132/62 11/02/25 23:19 79 96 11/02/25 23:18 98 H 141/64 H 11/02/25 23:14 93 H 96 11/02/25 23:12 95 H 136/60 11/02/25 23:09 94 H 145/75 H 97 11/02/25 23:08 95 H 88/54 L 11/02/25 23:06 91 H 109/54 L 11/02/25 23:04 95 H 106/55 L 97 11/02/25 23:02 91 H 105/53 L 11/02/25 23:00 36.6 C 101 H 16 110/53 L 11/02/25 22:59 107 H 96 11/02/25 22:58 91 H 112/52 L 11/02/25 22:57 100 H 107/55 L 11/02/25 22:54 94 H 97 11/02/25 22:52 93 H 115/56 L 11/02/25 22:49 102 H 98 11/02/25 22:44 111 H 98 11/02/25 22:39 104 H 98 11/02/25 22:34 84 97 11/02/25 22:29 86 96 11/02/25 22:26 86 93 11/02/25 22:24 96 H 98 11/02/25 22:19 95 H 98 11/02/25 22:14 76 98 11/02/25 22:09 93 H 97 11/02/25 22:04 90 97 11/02/25 21:05 36.9 C 70 16 124/68 11/02/25 19:08 36.9 C 79 18 122/71 11/02/25 17:00 18 11/02/25 17:00 36.7 C 18 11/02/25 16:30 18 11/02/25 16:30 18 11/02/25 15:53 88 140/78 11/02/25 15:50 18 11/02/25 15:50 36.7 C 18 11/02/25 12:33 76 132/66 11/02/25 12:30 18 11/02/25 12:30 36.4 C L 18 Pain Intensity Lower Abdomen: Pain Intensity: 3 Transfer of Care Handoff Completed per policy Notes Mental Status: alert / awake / arousable and participated in evaluation Patient Amnestic to Procedure: Yes Nausea / Vomiting: adequately controlled Pain: adequately controlled Airway Patency, RR, SpO2: stable & adequate BP & HR: stable & adequate Hydration State: stable & adequate Anesthetic Complications: no major complications apparent and Pt Satisfied with anesthetic care
[2025-11-03] MEDS: KETOROLAC 30 MG/ML VIAL IV SCH (11:16)
[2025-11-03] MEDS: ACETAMINOPHEN 325 MG TAB ONE (11:16)
[2025-11-03] MEDS ORDERED: Nursing to Pharmacy Communication SCH (11:30)
[2025-11-03] MEDS: OXYTOCIN 20 UNITS/LR 1,002 ML IV SCH (12:52)
[2025-11-03] MEDS: ACETAMINOPHEN 325 MG TAB PO SCH (16:27)
[2025-11-03] MEDS: SIMETHICONE 80 MG CHEW PO SCH (16:27)
[2025-11-03] MEDS ORDERED: ACETAMINOPHEN 325 MG TAB PO SCH (16:30)
[2025-11-03] MEDS: DOCUSATE SODIUM 100 MG CAP PO SCH (21:04)
--- NOTE | 2025-11-04 07:51 | Obstetrical Progress Note ---
Date of Service November 04, 2025 Assessment & Plan (1) Encounter for induction of labor: Postoperative day number warm from she is doing well minimal bleeding tolerating oral diet she has a dar dressing on no extremity pain incision not draining continue current care Subjective Ambulation: ambulating normally Voiding: no voiding problems Passing Gas:: Yes Diet Tolerance:: regular diet Lochia:: Small Physical Exam Constitutional WD/WN, vitals as above well developed and well nourished Respiratory normal respiratory effort, lungs clear to auscultation normal respiratory effort Cardiovascular RRR, no murmur, no edema Gastrointestinal (Abdomen) normal bowel sounds, soft, nontender, no hepatosplenomegaly Results & Data Vital Signs (Past 12 Hours) Vital Signs Temp Pulse Resp BP Pulse Ox O2 Del Method 11/04/25 04:00 18 93 11/04/25 03:04 97.7 F 82 18 109/74 96 Room Air 11/04/25 03:00 18 96 11/04/25 02:00 18 96 11/04/25 01:00 18 93 11/04/25 00:00 18 95 11/03/25 23:00 18 96 11/03/25 22:41 98.4 F 78 18 104/71 Room Air 11/03/25 22:00 20 96 11/03/25 21:00 18 93 11/03/25 20:00 18 97
[2025-11-04] MEDS: PRENATAL VITAMIN 1 TAB PO SCH (08:35)
[2025-11-04 08:46] LABS: Hematocrit (blood only) 25.7 % (37.0-47.0); Hemoglobin 8.6 g/dL (12.0-16.0)
[2025-11-04] MEDS: IBUPROFEN 600 MG TAB PO PRN ×2 (10:54→17:27)
[2025-11-05 01:47] VITALS: O2SAT 97
--- NOTE | 2025-11-05 06:33 | Obstetrical Progress Note ---
Date of Service November 05, 2025 Assessment & Plan (1) Obesity affecting , antepartum: (2) Gestational diabetes: (3) Status post section: Plan 30 yo post- day 2 s/p . Fells well today. Vital signs stable Continue post- care Encourage ambulation and Pain controlled with ibuprofen Hgb stable Discharge home today, follow up with in 6 weeks. Admission and Anticipated Discharge Date Admission Date: November 02, 2025 Supervising Physician Co-Signing Physician Notes Resident Physician Supervision Note: I interviewed and examined the patient. Discussed with Dr. Hector and agree with findings and plan as documented in the note. Any exceptions or clarifications are listed here: POD2 doing well Dc home, declines Rx for narcotic. Documented By: Carmen Summers, Subjective 30 yo post- day 2 s/p . Ambulation: ambulating normally Voiding: no voiding problems Passing Gas:: Yes Diet Tolerance:: regular diet Lochia:: Small Feeding Type:: breast and bottle feeding Current Pain Level:Slight pain Resting comfortably this AM in NAD. Denies TOSCANO, CP, SOB, N/V/D, LE pain/swelling. Review of Systems Review of Systems: As per HPI. Physical Exam Physical Exam: General: patient resting comfortably, NAD, non-toxic in appearance, AA&O x 4, answers questions appropriately. Skin: warm, dry, intact HEENT: NC/AT, anicteric sclera, conjunctiva without injection, moist mucus membranes. Heart: +S1/S2, regular, no m/r/g Lungs: equal air entry bilaterally, no rales/rhonchi/wheezes Abd: +BS, soft, NT/ND, uterine fundus firm at umbilicus. Ext: warm, no clubbing/cyanosis or edema, Andrew's neg. Results & Data Vital Signs (Past 12 Hours) Vital Signs Temp Pulse Resp BP Pulse Ox O2 Del Method 11/04/25 23:00 36.5 C 84 16 112/80 97 Room Air Resident Activity Tracking Resident Involvement: Resident Care Provided Care Provided: [facility]
[2025-11-05 09:30] VITALS: PULSE 83; RESP 18; TEMP 98.2
[2025-11-05 09:38] VITALS: BP 112/80
--- NOTE | 2025-11-09 11:35 | Coding Query ---
CODING QUERY To promote full compliance with coding requirements relating to patient care, provider participation is requested in all cases of building operator uncertainty. Please assist us with the question(s) below: Coding Question(s): Please specify below, the number of weeks of gestation of the upon admission: ( x) weeks of gestation of the on admission was known. Please specify the number of weeks of gestation 39 ( ) weeks of gestation of the on admission was unknown. Physician's Response(s): Thank you Ivanna Dickerson Principal Diagnosis: "that condition established after study, to be chiefly responsible for occasioning the admission of the patient to the hospital for care." Co-Existing Principal Diagnosis: "when two or more diagnoses equally meet the criteria for principal diagnosis as determined by the circumstances of admission, diagnostic work up, and/or therapy provided, and the Alphabetic Index, Tabular List, or another coding guideline does not provide sequencing direction, any one of the diagnoses may be sequenced first." "When the physician has documented what appears to be a current diagnosis in the body of the record, but has not included the diagnosis in the final diagnostic statement, the physician should be asked whether the diagnosis should be added." (Source Coding [facility] 2 QTR90. p3-4) KHALIDA
--- NOTE | 2025-11-10 16:17 | Discharge Summary ---
Date of Service November 10, 2025 Admission HPI Per Admitting Provider Patient is a 30yowf who presents for iol for obesity and gdm. She notes good fm, occasional contraction, no lof/vb. and Delivery Plans Obesity (BMI 40 and higher @ beginning of ) *Growth US @ 32wks *Weekly NSTs @ 34wks *BMI 40 or greater offer detailed/level II anatomy at [facility] [place] Normal *BMI 40 or above offer delivery by [facility]. 11/02/25 Hepatitis B Non Immune *Recommend Hepatitis B Vaccine Neg pap/HPV+ @ NOB visit *Repeat pap 1 year Trichomonas infection on pap @ NOB visit *MAX 3-4 wks after treatment----negative GDM w/16wk glucola *Begin monthly Growth US's @24wks OB Labs: Blood Type O Positive 04/16/25 Antibody Screen NEGATIVE 04/16/25 Hgb 11.5 g/dl (12.0-16.0) L 08/13/25 Hct 33.6 % (37.0-47.0) L 08/13/25 MCV 83.8 fL (80.0-100.0) 04/16/25 Plt Count 292 K/uL (130-400) 04/16/25 Rubella IgG Antibody Non Immune (Immune) L 04/16/25 Treponema pallidum Ab Negative (Negative) 08/13/25 Hep Bs Antigen Negative (Negative) 04/16/25 Hepatitis C Antibody Negative (Negative) 04/16/25 HIV 1&2 Ab/P24 Ag 4thGn Negative (Negative) 04/16/25 Glucose 1 Hr 50 gm 138 mg/dl (70-130) H 05/31/25 Maternal Serum AFP 38.7 ng/mL 05/31/25 OB Optional Labs: Chlamydia trachomatis RNA Not Detected (NotDetected) 05/26/25 Neisseria gonorrhoeae RNA Not Detected (NotDetected) 05/26/25 Alpha Fetoprotein Triple Screen SEE NOTE 05/31/25 Labs Reviewed: gbs neg afp neg low risk panorama shorizon 14 neg. gbs neg Admission Exam (Per Admitting) Constitutional WD/WN, vitals as above well developed and well nourished Respiratory normal respiratory effort, lungs clear to auscultation normal respiratory effort Cardiovascular RRR, no murmur, no edema Gastrointestinal (Abdomen) normal bowel sounds, soft, nontender, no hepatosplenomegaly Discharge Data Consultations 11/02/25 08:01 Consult Anesthesiology Stat Procedures Performed Operation Date: 11/03/25 09:30 Actual Procedures p Section in LD - Live female born on [birth year] at 1002 - Oneyda Umanzor MD, [facility] (1) Obesity affecting , antepartum: (2) Gestational diabetes: (3) Status post section: Plan 30 yo post- day 2 s/p . Fells well today. Vital signs stable Continue post- care Encourage ambulation and Pain controlled with ibuprofen Hgb stable Discharge home today, follow up with in 6 weeks. Supervising Physician Co-Signing Physician Notes Resident Physician Supervision Note: I interviewed and examined the patient. Discussed with Dr. Hector and agree with findings and plan as documented in the note. Any exceptions or clarifications are listed here: POD2 doing well Dc home, declines Rx for narcotic. Documented By: Carmen Summers DO Coding Level of Care Code None Diagnoses Obesity affecting , antepartum O99.210 Gestational diabetes O24.419 Status post section Z98.891
== END 2025-11-05 10:40 | disposition home or self-care (01) | DRG 788 ==
LOC: 4S1 07:39 → 4E2 11-03 12:49
DX: O69.81X0 Labor and delivery complicated by cord around neck, without compression, not applicable or unspecified; Z88.1 Allergy status to other antibiotic agents; O99.214 Obesity complicating childbirth; Z3A.39 39 weeks gestation of pregnancy; Z37.0 Single live birth; O09.893 Supervision of other high risk pregnancies, third trimester; O24.429 Gestational diabetes mellitus in childbirth, unspecified control; O77.0 Labor and delivery complicated by meconium in amniotic fluid; O26.893 Other specified pregnancy related conditions, third trimester; Z79.899 Other long term (current) drug therapy; Z86.19 Personal history of other infectious and parasitic diseases; Z28.39 Other underimmunization status; O33.9 Maternal care for disproportion, unspecified; O62.0 Primary inadequate contractions